=== PATIENT | male | born 1960 ===

== ENCOUNTER 2016-12-19 06:50 | Day surgery (SDC) | payer OTHER ==
[2016-12-18 10:43] VITALS: BMI 24.0
[~2016-12-19] VITALS: Ht 177.8 cm; Wt 77.3 kg
[~2016-12-19 06:50] MED LIST: ASPI81TA28 PO; CEFAZOLIN 2000 MG/60 ML D5W IV SCH; DESMOPRESSIN ACETATE IV SCH; LACTATED RINGER'S 1000ML 1,000 ML IV SCH; LISI20TA3 PO; METO50TA7 PO; SODIUM CHLORIDE 0.9% IV SCH
[2016-12-19 07:33] VITALS: BP 141/79; PULSE 55; TEMP 36.5; O2SAT 99; Ht 177.8 cm; Wt 77.3 kg
[2016-12-19] MEDS ORDERED: ATROPINE SULFATE 0.1 MG/ML 5ML SYR IV PRN (07:45)
[2016-12-19] MEDS ORDERED: EpHEDrine SULFATE INJ 50 MG/ML AMP IV PRN (07:45)
[2016-12-19] MEDS ORDERED: ONDANSETRON INJ 2 MG/ML 2 ML VIAL IV PRN (07:45)
[2016-12-19] MEDS ORDERED: FENTANYL CITRATE INJ 50 MCG/1 ML 2 ML VIAL IV PRN (07:45)
[2016-12-19] MEDS ORDERED: MIDAZOLAM HCL 1 MG/ML 2ML VIAL ONE (08:02)
[2016-12-19] MEDS ORDERED: ONDANSETRON INJ 2 MG/ML 2 ML VIAL ONE (08:02)
[2016-12-19] MEDS ORDERED: FENTANYL CITRATE INJ 50 MCG/1 ML 2 ML VIAL ONE (08:02)
[2016-12-19] MEDS ORDERED: PROPOFOL IV EMULSION 10 MG/ML 20 ML VIAL IV ONE (08:02)
[2016-12-19] MEDS ORDERED: DEXAMETHASONE SOD INJ 4 MG/ML VIAL ONE (08:02)
--- NOTE | 2016-12-19 08:42 | History & Physical Bridge Note ---
H&P Re-Evaluation Bridge Note: I have examined the patient, reviewed the History & Physical and in the interval since the performance of the History & Physical I have noted the following changes of clinical significance: No changes noted
[2016-12-19] MEDS ORDERED: BELLADONNA/OPIUM SUPP 60 MG SUPP PR ONE (09:32)
[2016-12-19] MEDS ORDERED: ACETAMINOPHEN 1000 MG/100 ML IV IV ONE (09:34)
--- NOTE | 2016-12-19 10:24 | [facility] Operative Report ---
Operative Report Operative Date Dec 19, 2016. Pre-Operative Diagnosis Left renal stone Post-Operative Diagnosis same plus small left trigone bladder tumor Procedure(s) Performed cystoscopy with biopsy of small bladder tumor left ureteroscopy laser lithotripsy basket stone extraction stent placement Surgeon Dr. Rachelle Xiong Debeaker Surgeon(s) None Estimated Blood Loss 4 mL Findings papillary small 5mm left trigone bladder tumor radio-opaque left renal pelvis stone Specimens Permanent specimens A: Left trigone papillary tumor B: Left renal stone for analysis Drains 6 fr 24 centimeter double J stent Anesthesia LMA Complication(s) None Disposition Recovery Room / PACU Indications intermittently symptomatic left upj stone Description of Procedure Patient was given iv DDAVP prior to surgery. Patient was given general LMA anesthesia and placed in lithotomy position. His genitals were prepped and draped in sterile fashion. Time out held with team. I placed a 21 fr rigid cystoscope to bladder. The urethra is unremarkable. The prostate is small. The UOs are in normal location. There is a tiny papillary tumor 5mm size just posterolateral to the left UO . I used a cold cups forceps and removed it in one bite easily. I used sorbitol irrigation and a bugbee to cauterize the biopsy base. Hemostasis was excellent. I switched back to saline irrigation. I placed a stiff wire up left ureter and then placed a 10 fr dual lumen over it to calibrate the Uo. I placed a second bentson wire and removed 10 fr. I then passed the flexible ureteroscope over the bentson wire easily to the upper ureter. I found his kidney stone free floating in the left renal pelvis. I used a 200 micron holmium laser fiber to fragment the stone into 4 pieces. I used a 2.2 fr tipless basket to remove all the fragments. There was moderate upper tract bleeding once I was done. I placed a 24 centimeter 6 Fr double J stent easily. There is brisk bloody efflux after placement. I left bladder empty and concluded case. I placed a belladonna and opium suppository for post- op pain. He transferred to recovery under my escort, in stable condition. Plan: Home today Pyridium for dysuria x 3 days flomax daily oral pain meds as needed stent out next week in office path discussion in office I attest to the content of the Intraoperative Record and any orders documented therein. Any exceptions are noted below.
[2016-12-19] MEDS ORDERED: PHEN-775 PO (10:26)
[2016-12-19] MEDS ORDERED: OXYC-57 PO (10:26)
[2016-12-19] MEDS ORDERED: TAMS0.4C38 PO (10:26)
--- NOTE | 2016-12-19 10:29 | Discharge Instructions ---
Discharge Instructions Admission Reason for Admission: Recurrent Kidney Stones Discharge Discharge Diagnosis / Problem: small bladder tumor, left kidney stone Discharge Goals Goal(s): Decrease discomfort, Improve disease control Activity Recommendations Activity Limitations: resume your previous activity Lifting Limitations: none Exercise/Sports Limitations: none May Resume Sexual Activity: when tolerated Shower/Bathe: no limitations Driving or Machine Use: resume 1 day after discharge . Instructions / Follow-Up Instructions / Follow-Up expect blood in urine for days expect both kidney and bladder and urethral pain take tamsulosin daily until stent removed stent removal and biopsy result discussion next week in office Discharge Diet Recommended Diet: Regular Diet Fluid Restriction: None Procedures Procedures Performed: Cystoscopy, left ureteroscopy, laser lithotripsy, basket stone extraction, stent placement, bladder biopsy Pending Studies Studies pending at discharge: yes List of pending studies: stone analysis and bladder tumor pathology report Work Instructions Return To Work: 5 days Lifting Limitations: none Medical Emergencies . Who to Call and When: Medical Emergencies: If at any time you feel your situation is an emergency, please call 911 immediately. . Non-Emergent Contact Non-Emergency issues call your: Urologist ([phone]) Call Non-Emergent contact if: temperature is above 101 . . "Provider Documentation" section prepared by Rachelle Xiong. VTE Core Measure Inpt VTE Proph given/why not?: SCD's [place] Drug Monitoring Program Search Results: patient reviewed within database, no issues identified
[2016-12-19 11:00] VITALS: BP 111/65; PULSE 57; TEMP 36.5; O2SAT 96
--- NOTE | 2016-12-19 11:00 | Anesthesiology Progress Note ---
Anesthesia Post Op Note Date & Time Dec 19, 2016 at 11:00 Vital Signs Pain Intensity: 0 Vital Signs Past 12 Hours Date Time Temp Pulse Resp B/P Pulse Ox O2 Delivery O2 Flow Rate FiO2 12/19/16 10:50 66 18 157/98 99 Room Air 12/19/16 10:40 36.3 62 18 127/93 98 Room Air 12/19/16 10:30 66 18 127/84 100 Mask 10 12/19/16 10:20 36.2 70 18 126/75 100 Mask 10 12/19/16 07:33 36.5 55 18 141/79 99 Room Air Notes Mental Status: alert / awake / arousable, participated in evaluation Pt Amnestic to Procedure: Yes Nausea / Vomiting: adequately controlled Pain: adequately controlled Airway Patency, RR, SpO2: stable & adequate BP & HR: stable & adequate Hydration State: stable & adequate Anesthetic Complications: no major complications apparent
[2016-12-19 11:30] VITALS: BP 138/81; PULSE 60; O2SAT 96
[2016-12-19] MEDS ORDERED: OXYCODONE/ACETAMINOPHEN 5-325 TAB ONE (11:37)
[2016-12-19] MEDS ORDERED: NURSING VERBAL MED ORDER ONE (11:45)
--- NOTE | 2016-12-19 11:47 | DIAGNOSTIC IMAGING REPORT ---
INTRAOPERATIVE RADIOGRAPHS CLINICAL HISTORY: Left-sided lithotripsy and stent placement. Fluoroscopy time: 5 seconds. FINDINGS: 4 spot fluoroscopic views of the left abdomen from a lithotripsy and ureteral stent placement procedure are presented. No prior studies are available for comparison at the time of dictation. There is cannulation of the left ureter. A lithotripsy device is noted. The final 2 images show a ureteral stent being deployed. IMPRESSION: Intraoperative images from a lithotripsy and left ureteral stent placement procedure as above. See operative report for detailed findings. Electronically signed by: Cordell Kaplan M.D. 12/19/2016 11:46 AM Dictated Date/Time: 12/19/2016 11:31 AM
[2016-12-19 12:10] VITALS: BP 150/91; PULSE 67; TEMP 36.7; O2SAT 96
== END 2016-12-19 12:25 | disposition home or self-care (01) ==
LOC: C.ACU 06:50
PROVIDERS: ATTEND Urology
DX: C67.9 Malignant neoplasm of bladder, unspecified (principal); N20.0 Calculus of kidney; R31.9 Hematuria, unspecified; D68.0 Von Willebrand disease; I48.0 Paroxysmal atrial fibrillation; M15.9 Polyosteoarthritis, unspecified; I10 Essential (primary) hypertension; E78.5 Hyperlipidemia, unspecified